=== PATIENT | female | born 1940 | race Caucasian/White ===

== ENCOUNTER → 2016-09-26 | Outpatient (CLI) | payer OTHER ==
[~2016-09-26] MED LIST: ASPI81TA28 PO; DOCU100C31 PO; LISI-461 PO; MULT-506 PO; OMEG10007 PO
--- NOTE | 2016-09-26 15:28 | DIAGNOSTIC IMAGING REPORT ---
RIGHT LOWER EXTREMITY VENOUS DOPPLER HISTORY: RIGHT LEG PAIN Right COMPARISON STUDY: None. FINDINGS: There is normal compressibility, flow, and augmentation within the right lower extremity deep venous system. IMPRESSION: No DVT within the right lower extremity Electronically signed by: Marcus Olson M.D. 09/26/2016 3:27 PM Dictated Date/Time: 09/26/2016 3:27 PM
--- NOTE | 2016-09-26 15:36 | DIAGNOSTIC IMAGING REPORT ---
RIGHT TIBIA/FIBULA 2 VIEWS ROUTINE CLINICAL HISTORY: Right leg pain COMPARISON: None. DISCUSSION: No acute fractures are visualized. There are no erosive or destructive changes. There are small calcaneal spurs. There is a small calcification projected over the lateral joint compartment the knee. IMPRESSION: 1. No acute fractures 2. No destructive lesions are visualized on conventional radiographic imaging Electronically signed by: Ricky Aleman M.D. 09/26/2016 3:35 PM Dictated Date/Time: 09/26/2016 3:34 PM
== END | disposition home or self-care (01) ==
LOC: C.ULTRBC 14:54
PROVIDERS: ATTEND Physician Assistant
DX: M79.604 Pain in right leg (principal)

== ENCOUNTER → 2017-01-03 | Outpatient (CLI) | payer OTHER ==
--- NOTE | 2017-01-03 13:50 | MAMMOGRAPHY REPORT ---
BILATERAL DIGITAL SCREENING MAMMOGRAM WITH CAD: 01/03/2017 CLINICAL HISTORY: Routine screening. TECHNIQUE: Current study was also evaluated with a Computer Aided Detection (CAD) system. Bilateral CC and MLO views were obtained. COMPARISON: Comparison is made to exams dated: 12/15/2015 mammogram, 12/01/2014 mammogram, 09/03/2012 sharmila mogram, 11/26/2013 mammogram, 08/15/2011 mammogram, and 11/03/2009 mammogram - [facility] er. BREAST COMPOSITION: The tissue of both breasts is heterogeneously dense, which may obscure small mas ses. FINDINGS: No suspicious masses, calcifications, or areas of architectural distortion are noted in ei ther breast. There has been no significant interval change compared to prior exams. Scattered bilater al benign-appearing calcifications are not significantly changed. A linear scar marker denotes a sca r on the right upper inner breast. IMPRESSION: ACR BI-RADS CATEGORY 2: BENIGN There is no mammographic evidence of malignancy. A 1 year screening mammogram is recommended. The pa tient will receive written notification of the results. Approximately 10% of breast cancers are not detected with mammography. A negative mammographic report should not delay biopsy if a clinically suggestive mass is present. Marzena Sampson M.D. ah/:01/03/2017 12:36:07 Dog Trainer: Lance RANDALL(Jo-Ann)(M), [facility] letter sent: Normal 1/2 BI-RADS Code: ACR BI-RADS Category 2: Benign
== END | disposition home or self-care (01) ==
LOC: C.MAMM 12:11
PROVIDERS: ATTEND Internal Medicine
DX: Z12.31 Encounter for screening mammogram for malignant neoplasm of breast (principal)

== ENCOUNTER → 2017-03-16 | Outpatient (CLI) | payer OTHER ==
[2017-03-16 09:37] LABS: BASO % 0.5 %; BASO ABS # 0.02 K/uL (0-0.2); COMPLETE YES; EOS % 2.8 %; HEMATOCRIT 40.4 % (37-47); IG% 0.2 %; LYMPH % 34.6 %; LYMPH ABS # 1.51 K/uL (1.2-3.4); MEAN CELL VOLUME 94.4 fL (80-100); MEAN CORPUSCULAR HEMOGLOBIN 30.6 pg (25-34); MEAN CORPUSCULAR HGB CONC 32.4 g/dl (32-36); MEAN PLATELET VOLUME 9.1 fL (7.4-10.4); MONO % 10.1 %; NEUT % 51.8 %; PLATELET COUNT 216 K/uL (130-400); RED BLOOD COUNT 4.28 M/uL (4.2-5.4); WHITE BLOOD COUNT 4.36 K/uL (4.8-10.8)
[2017-03-16 09:55] LABS: ALT/SGPT 27 U/L (12-78); AST/SGOT 21 U/L (15-37); BLOOD UREA NITROGEN 17 mg/dl (7-18); BUN/CREATININE RATIO 16.1 (10-20); CALCIUM 9.4 mg/dl (8.5-10.1); CARBON DIOXIDE 30 mmol/L (21-32); CHLORIDE 104 mmol/L (98-107); CREATININE 1.08 mg/dl (0.60-1.20); GLUCOSE 91 mg/dl (70-99); POTASSIUM 4.3 mmol/L (3.5-5.1); SODIUM 138 mmol/L (136-145)
[2017-03-16 09:58] LABS: ALKALINE PHOSPHATASE 49 U/L (45-117); CHOLESTEROL 237 mg/dl (0-200); HDL CHOLESTEROL 60 mg/dl; LDL CHOLESTEROL CALCULATED 148 mg/dl; TRIGLYCERIDES 143 mg/dl (0-150); VERY LOW DENSITY LIPOPROT CALC 29 mg/dl
== END | disposition home or self-care (01) ==
LOC: C.LAB1850 07:00
PROVIDERS: ATTEND Internal Medicine
DX: M19.90 Unspecified osteoarthritis, unspecified site (principal)